=== PATIENT | male | born 1955 | race Caucasian/White ===

== ENCOUNTER 2017-11-08 09:53 | Inpatient (IN) | payer MEDICARE, OTHER ==
[~2017-11-08] VITALS: Ht 167.6 cm; Wt 106.2 kg
[~2017-11-08 09:53] MED LIST: ALBU18HF2 INH; ALBU2.5V13 NEB; ASPI-1053 PO; ATOR80TA PO; ATR0.5NEB NEB; BECL8.7A7 INH; BUSP5TAB3 PO; GLUC1CAP17 PO; ISOS30TA6 PO; LABE100T5 PO; LISI-604 PO; ONDA4TAB12 PO; PANT40TA4 PO; SPIIN INH; SUMA100T16 PO
[2017-11-08] MEDS ORDERED: ipratropium/albuterol 3ml nebule NEB ONE (10:20)
[2017-11-08] MEDS ORDERED: methylPREDNISolone sod succ 125mg/2ml vial IV ONE (10:20)
[2017-11-08 10:26] LABS: BASOPHILS # (AUTO) 0.1 X10'3 (0-0.2); BASOPHILS % (AUTO) 0.8 % (0-1); EOSINOPHILS # (AUTO) 0.2 X10'3 (0-0.9); EOSINOPHILS % (AUTO) 1.9 % (0-6); HEMOGLOBIN 14.6 g/dl (14.0-17.9); LYMPHOCYTES # (AUTO) 1.7 X10'3 (1.1-4.8); LYMPHOCYTES % (AUTO) 19.4 % (21-51); MEAN CORPUSCULAR HGB CONC 34.8 % (33.0-36.5); MEAN CORPUSCULAR VOLUME 89.1 FL (78-98); MEAN PLATELET VOLUME 9.7 FL (7.4-10.4); MONOCYTES # (AUTO) 0.5 X10'3 (0-0.9); MONOCYTES % (AUTO) 5.4 % (2-12); NEUTROPHILS # (AUTO) 6.4 X10'3 (1.8-7.7); NEUTROPHILS % (AUTO) 72.5 % (42-75); PLATELET COUNT 182 X10'3 (140-440); RED BLOOD COUNT 4.71 X10'6 (4.70-6.10); RED CELL DISTRIBUTION WIDTH 14.5 % (11.5-14.5); WHITE BLOOD COUNT 8.8 X10'3 (4.5-11.0)
[2017-11-08] MEDS: magnesium 1gm/100ml D5W IVPB 100 ML IV SCH ×2 (10:37→11:36)
[2017-11-08 10:39] LABS: PARTIAL THROMBOPLASTIN TIME 24 SECONDS (22-32); PROTHROMBIN TIME 10.1 SECONDS (9.0-12.0)
[2017-11-08 10:44] LABS: ALANINE AMINOTRANSFERASE 126 U/L (12-78); ALBUMIN 3.5 G/DL (3.4-5.0); ALBUMIN/GLOBULIN RATIO 1.3 (1.1-1.5); ALKALINE PHOSPHATASE 110 IU/L (46-116); ANION GAP 10 (8-16); ASPARTATE AMINO TRANSFERASE 69 U/L (10-37); BILIRUBIN,TOTAL 0.3 MG/DL (0.1-1.0); BLOOD UREA NITROGEN 20 MG/DL (7-18); BUN/CREATININE RATIO 20.4 (5.4-32.0); CALCIUM 8.9 MG/DL (8.5-10.1); CHLORIDE 104 MMOL/L (99-107); CREATININE 0.98 MG/DL (0.60-1.10); GLUCOSE 194 MG/DL (70-104); POTASSIUM 3.3 MMOL/L (3.5-5.1); SODIUM 142 MMOL/L (135-145); TOTAL CARBON DIOXIDE 27.6 MMOL/L (24-32); TOTAL PROTEIN 6.3 G/DL (6.4-8.2); eGFR 78 ML/MIN
[2017-11-08] MEDS ORDERED: furosemide 10 MG/1 ML 10ml inj IV ONE (11:05)
[2017-11-08] MEDS ORDERED: potassium Cl 20 mEq SR tablet PO STA (12:15)
[2017-11-08] MEDS ORDERED: DISO150C4 (13:05)
[2017-11-08] MEDS ORDERED: acetaminophen 325mg tablet PO PRN (13:15)
[2017-11-08] MEDS ORDERED: magnesium hydroxide 30ml (MOM) UD suspension PO PRN (13:15)
[2017-11-08] MEDS ORDERED: ondansetron/PF 4mg/2ml inj IV PRN (13:15)
[2017-11-08] MEDS ORDERED: mag hydrox/Alum hydrox/simeth 30ml oral suspension PO PRN (13:15)
[2017-11-08] MEDS ORDERED: non-formulary drug (Albuterol Sulfate (Ventolin Hfa) 2 PUFFS) INH PRN (14:25)
[2017-11-08] MEDS ORDERED: albuterol 2.5 MG/3 ML nebule NEB PRN (14:30)
[2017-11-08 15:01] VITALS: BP 122/50
[2017-11-08] MEDS: ipratropium/albuterol 3ml nebule NEB SCH ×3 (15:25→23:37)
[2017-11-08 19:00] VITALS: BP 120/65
[2017-11-08] MEDS ORDERED: potassium Cl 20 mEq SR tablet PO SCH (20:00)
[2017-11-08] MEDS: furosemide 40mg/4ml inj IV SCH (20:40)
[2017-11-08] MEDS: labetalol 100mg tablet PO SCH (20:42)
[2017-11-08] MEDS ORDERED: potassium Cl oral solution 20 MEQ/15 ML PO ONE (22:35)
[2017-11-08 23:00] VITALS: BP 114/50
[2017-11-09 03:00] VITALS: BP 113/44
[2017-11-09] MEDS: ipratropium/albuterol 3ml nebule NEB SCH ×6 (03:31→22:49)
[2017-11-09 06:00] VITALS: BP 128/64
[2017-11-09 07:09] LABS: BASOPHILS % (AUTO) 0 % (0-1); EOSINOPHILS # (AUTO) 0.2 X10'3 (0-0.9); EOSINOPHILS % (AUTO) 1.3 % (0-6); HEMATOCRIT 43.9 % (42.0-52.0); HEMOGLOBIN 14.9 g/dl (14.0-17.9); LYMPHOCYTES % (AUTO) 6.3 % (21-51); MEAN CORPUSCULAR HEMOGLOBIN 30.5 PG (27.0-31.0); MEAN CORPUSCULAR HGB CONC 33.9 % (33.0-36.5); MEAN CORPUSCULAR VOLUME 89.9 FL (78-98); MEAN PLATELET VOLUME 10.2 FL (7.4-10.4); MONOCYTES # (AUTO) 0.6 X10'3 (0-0.9); MONOCYTES % (AUTO) 3.9 % (2-12); NEUTROPHILS # (AUTO) 14.1 X10'3 (1.8-7.7); NEUTROPHILS % (AUTO) 88.5 % (42-75); PLATELET COUNT 206 X10'3 (140-440); RED BLOOD COUNT 4.88 X10'6 (4.70-6.10); RED CELL DISTRIBUTION WIDTH 14.6 % (11.5-14.5); WHITE BLOOD COUNT 15.9 X10'3 (4.5-11.0)
[2017-11-09 07:18] LABS: ALBUMIN 3.4 G/DL (3.4-5.0); ANION GAP 8 (8-16); BLOOD UREA NITROGEN 17 MG/DL (7-18); BUN/CREATININE RATIO 16.5 (5.4-32.0); CALCIUM 9.3 MG/DL (8.5-10.1); CHLORIDE 106 MMOL/L (99-107); CREATININE 1.03 MG/DL (0.60-1.10); GLUCOSE 172 MG/DL (70-104); POTASSIUM 4.1 MMOL/L (3.5-5.1); SODIUM 140 MMOL/L (135-145); TOTAL CARBON DIOXIDE 25.6 MMOL/L (24-32); eGFR 74 ML/MIN
[2017-11-09] MEDS: potassium Cl oral solution 20 MEQ/15 ML PO SCH ×2 (07:42→20:12)
[2017-11-09] MEDS: furosemide 40mg/4ml inj IV SCH (07:42)
[2017-11-09] MEDS: lisinopril 5mg tablet PO SCH (07:42)
[2017-11-09] MEDS: labetalol 100mg tablet PO SCH ×2 (07:42→20:11)
[2017-11-09] MEDS: aspirin 81mg tab.chew PO SCH (07:42)
[2017-11-09] MEDS ORDERED: [UNRECOGNIZED DRUG - OTHER] PO SCH (08:00)
[2017-11-09] MEDS: [UNRECOGNIZED DRUG - REMARK] PO NR (10:27)
[2017-11-09 11:00] VITALS: BP 134/66
[2017-11-09] MEDS ORDERED: diphenhydrAMINE 50 mg/ml inj IV ONE ×2 (12:25→18:00)
[2017-11-09 13:21] LABS: ALANINE AMINOTRANSFERASE 112 U/L (12-78); ALBUMIN 3.9 G/DL (3.4-5.0); ALBUMIN/GLOBULIN RATIO 1.3 (1.1-1.5); ALKALINE PHOSPHATASE 93 IU/L (46-116); ASPARTATE AMINO TRANSFERASE 30 U/L (10-37); BILIRUBIN,DIRECT 0.1 MG/DL (0-0.3); BILIRUBIN,TOTAL 0.5 MG/DL (0.1-1.0)
[2017-11-09 15:00] VITALS: BP 123/63
[2017-11-09 19:00] VITALS: BP 133/56
[2017-11-09] MEDS: famotidine 20mg tablet PO SCH (20:10)
[2017-11-09] MEDS: hydrOXYzine 25 MG tablet PO SCH (20:11)
[2017-11-09 23:00] VITALS: BP 118/63
[2017-11-10] MEDS: ipratropium/albuterol 3ml nebule NEB SCH ×3 (02:38→10:11)
[2017-11-10] MEDS: hydrOXYzine 25 MG tablet PO SCH ×2 (02:48→09:02)
[2017-11-10 03:00] VITALS: BP 141/73
[2017-11-10 06:07] LABS: BASOPHILS % (AUTO) 0.5 % (0-1); EOSINOPHILS # (AUTO) 0.2 X10'3 (0-0.9); EOSINOPHILS % (AUTO) 2.2 % (0-6); HEMATOCRIT 42.4 % (42.0-52.0); HEMOGLOBIN 14.5 g/dl (14.0-17.9); LYMPHOCYTES # (AUTO) 2.2 X10'3 (1.1-4.8); LYMPHOCYTES % (AUTO) 21.7 % (21-51); MEAN CORPUSCULAR HEMOGLOBIN 30.9 PG (27.0-31.0); MEAN CORPUSCULAR HGB CONC 34.2 % (33.0-36.5); MEAN CORPUSCULAR VOLUME 90.4 FL (78-98); MEAN PLATELET VOLUME 9.8 FL (7.4-10.4); MONOCYTES # (AUTO) 0.7 X10'3 (0-0.9); MONOCYTES % (AUTO) 6.9 % (2-12); NEUTROPHILS # (AUTO) 6.8 X10'3 (1.8-7.7); NEUTROPHILS % (AUTO) 68.7 % (42-75); PLATELET COUNT 178 X10'3 (140-440); RED BLOOD COUNT 4.69 X10'6 (4.70-6.10); RED CELL DISTRIBUTION WIDTH 15.1 % (11.5-14.5)
[2017-11-10 06:14] LABS: ALBUMIN 3.2 G/DL (3.4-5.0); ANION GAP 8 (8-16); BLOOD UREA NITROGEN 17 MG/DL (7-18); BUN/CREATININE RATIO 17.5 (5.4-32.0); CHLORIDE 105 MMOL/L (99-107); CREATININE 0.97 MG/DL (0.60-1.10); GLUCOSE 106 MG/DL (70-104); POTASSIUM 3.9 MMOL/L (3.5-5.1); SODIUM 141 MMOL/L (135-145); TOTAL CARBON DIOXIDE 28.3 MMOL/L (24-32); eGFR 79 ML/MIN
[2017-11-10 06:30] VITALS: BP 137/72
[2017-11-10] MEDS: lisinopril 5mg tablet PO SCH (09:01)
[2017-11-10] MEDS: famotidine 20mg tablet PO SCH (09:02)
[2017-11-10] MEDS: labetalol 100mg tablet PO SCH (09:02)
[2017-11-10] MEDS: aspirin 81mg tab.chew PO SCH (09:02)
[2017-11-10] MEDS: potassium Cl oral solution 20 MEQ/15 ML PO SCH (09:03)
[2017-11-10] MEDS: [UNRECOGNIZED DRUG - REMARK] PO NR (10:02)
[2017-11-10] MEDS ORDERED: BUDE10.22 INH (10:49)
[2017-11-10] MEDS ORDERED: FAMO20TA8 PO (10:49)
[2017-11-10 11:00] VITALS: BP 121/76
== END 2017-11-10 12:54 | disposition home or self-care (01) | DRG 292 ==
LOC: ER 09:53 → ED HOLD 13:11 → PCU 3S 14:47
PROVIDERS: ADMIT Family Medicine; ATTEND Family Medicine
PROC: 5A09357 Assistance with Respiratory Ventilation, Less than 24 Consecutive Hours, Continuous Positive Airway Pressure (ICD-10-PCS; principal; 2017-11-08)
PROC: 5A09357 Assistance with Respiratory Ventilation, Less than 24 Consecutive Hours, Continuous Positive Airway Pressure (ICD-10-PCS; 2017-11-09)
PROC: 5A09357 Assistance with Respiratory Ventilation, Less than 24 Consecutive Hours, Continuous Positive Airway Pressure (ICD-10-PCS; 2017-11-10)
DX: I11.0 Hypertensive heart disease with heart failure (principal); J96.10 Chronic respiratory failure, unspecified whether with hypoxia or hypercapnia; I50.33 Acute on chronic diastolic (congestive) heart failure; I42.1 Obstructive hypertrophic cardiomyopathy; J44.9 Chronic obstructive pulmonary disease, unspecified; G47.33 Obstructive sleep apnea (adult) (pediatric); E78.00 Pure hypercholesterolemia, unspecified; R21 Rash and other nonspecific skin eruption; K21.9 Gastro-esophageal reflux disease without esophagitis; Z90.49 Acquired absence of other specified parts of digestive tract; Z95.810 Presence of automatic (implantable) cardiac defibrillator; Z88.8 Allergy status to other drugs, medicaments and biological substances; Z79.899 Other long term (current) drug therapy; Z86.73 Personal history of transient ischemic attack (TIA), and cerebral infarction without residual deficits; Z86.79 Personal history of other diseases of the circulatory system; Z87.891 Personal history of nicotine dependence
CPT/HCPCS: 36415; 71045; 80048; 80053; 80076; 83880; 84145; 84484; 85025; 85610; 85730; 87070; 93005; 93306; 94640; 94760; 96374; 96375; 99285; J1200; J1940; J2930; Q0177

== ENCOUNTER 2018-11-02 19:08 | Inpatient (IN) | payer MEDICARE, OTHER ==
[~2018-11-02] VITALS: Ht 167.6 cm; Wt 106.4 kg
[~2018-11-02 19:08] MED LIST changes: -ATOR80TA PO; -BECL8.7A7 INH; +BUDE10.22 INH; -BUSP5TAB3 PO; +DISO150C4; +FAMO20TA8 PO; -ISOS30TA6 PO; -ONDA4TAB12 PO; -PANT40TA4 PO; -SPIIN INH; -SUMA100T16 PO
[2018-11-02 19:38] LABS: BASOPHILS # (AUTO) 0.1 X10'3 (0-0.2); BASOPHILS % (AUTO) 0.9 % (0-1); EOSINOPHILS # (AUTO) 0.2 X10'3 (0-0.9); EOSINOPHILS % (AUTO) 1.6 % (0-6); HEMATOCRIT 45.5 % (42.0-52.0); HEMOGLOBIN 15.1 g/dl (14.0-17.9); LYMPHOCYTES # (AUTO) 3.5 X10'3 (1.1-4.8); MEAN CORPUSCULAR HEMOGLOBIN 29.8 PG (27.0-31.0); MEAN CORPUSCULAR HGB CONC 33.2 g/dL (33.0-36.5); MEAN CORPUSCULAR VOLUME 89.8 FL (78-98); MEAN PLATELET VOLUME 9.5 FL (7.4-10.4); MONOCYTES # (AUTO) 0.8 X10'3 (0-0.9); MONOCYTES % (AUTO) 6.8 % (2-12); NEUTROPHILS # (AUTO) 7.4 X10'3 (1.8-7.7); NEUTROPHILS % (AUTO) 61.7 % (42-75); PLATELET COUNT 258 X10'3 (140-440); RED BLOOD COUNT 5.06 X10'6 (4.70-6.10); RED CELL DISTRIBUTION WIDTH 14.2 % (11.5-14.5)
[2018-11-02 19:45] LABS: ALANINE AMINOTRANSFERASE 94 U/L (12-78); ALBUMIN 3.8 G/DL (3.4-5.0); ALBUMIN/GLOBULIN RATIO 1.2 (1.1-1.5); ALKALINE PHOSPHATASE 113 IU/L (46-116); ANION GAP 11 (8-16); ASPARTATE AMINO TRANSFERASE 50 U/L (10-37); BILIRUBIN,TOTAL 0.4 MG/DL (0.1-1.0); BLOOD UREA NITROGEN 15 MG/DL (7-18); CALCIUM 9.8 MG/DL (8.5-10.1); CHLORIDE 105 MMOL/L (99-107); CREATININE 1.25 MG/DL (0.60-1.10); GLUCOSE 138 MG/DL (70-104); POTASSIUM 3.7 MMOL/L (3.5-5.1); SODIUM 141 MMOL/L (135-145); TOTAL CARBON DIOXIDE 24.7 MMOL/L (24-32); TOTAL PROTEIN 7.1 G/DL (6.4-8.2); eGFR 59 ML/MIN
[2018-11-02 19:52] LABS: PARTIAL THROMBOPLASTIN TIME 25 SECONDS (22-32)
[2018-11-02] MEDS ORDERED: aspirin 81mg tab.chew PO ONE (20:20)
[2018-11-02] MEDS ORDERED: nitroGLYCERIN 0.4mg SUBLingual tab SL PRN (20:20)
[2018-11-02] MEDS ORDERED: magnesium 4gm in 100ml NS 100 ML IV PRN (20:55)
[2018-11-02] MEDS ORDERED: acetaminophen 325mg tablet PO PRN ×2 (20:55)
[2018-11-02] MEDS ORDERED: magnesium Cl slow-release 64mg tablet PO PRN (20:55)
[2018-11-02] MEDS ORDERED: ondansetron/PF 4mg/2ml inj IV PRN (20:55)
[2018-11-02] MEDS ORDERED: potassium Cl 20 mEq SR tablet PO PRN ×2 (20:55)
[2018-11-02] MEDS ORDERED: magnesium hydroxide 30ml (MOM) UD suspension PO PRN (20:55)
[2018-11-02] MEDS ORDERED: potassium CL 10mEq/100ml bag 100 ML IV PRN ×2 (20:55)
[2018-11-02] MEDS ORDERED: magnesium 2GM in 50ml NS 50 ML IV PRN (20:55)
[2018-11-02] MEDS ORDERED: mag hydrox/Alum hydrox/simeth 30ml oral suspension PO PRN (20:55)
--- NOTE | 2018-11-02 21:45 | NUR ---
Patient in room PCU 3018. I have received report from Graciela CARVAJAL and had the opportunity to ask questions and assume patient care.
[2018-11-02 22:00] VITALS: BP 140/69
--- NOTE | 2018-11-02 22:00 | NUR ---
Patient admitted to 3018B. Able to walk independently in room and to that bathroom. Patient is stable, alert, and oriented; family is at bedside.
[2018-11-02] MEDS ORDERED: PANT-47 PO (23:38)
[2018-11-02] MEDS ORDERED: POTA10TA19 PO (23:38)
[2018-11-02] MEDS ORDERED: DILT180C49 PO (23:38)
[2018-11-02] MEDS ORDERED: FURO-150 PO (23:38)
[2018-11-02] MEDS ORDERED: METF500T PO (23:38)
[2018-11-02] MEDS ORDERED: RANI150T8 PO (23:38)
[2018-11-03 01:14] LABS: BASOPHILS # (AUTO) 0.1 X10'3 (0-0.2); BASOPHILS % (AUTO) 1.1 % (0-1); EOSINOPHILS # (AUTO) 0.1 X10'3 (0-0.9); EOSINOPHILS % (AUTO) 1.2 % (0-6); HEMATOCRIT 41.1 % (42.0-52.0); HEMOGLOBIN 13.7 g/dl (14.0-17.9); LYMPHOCYTES # (AUTO) 1.6 X10'3 (1.1-4.8); LYMPHOCYTES % (AUTO) 20.5 % (21-51); MEAN CORPUSCULAR HEMOGLOBIN 29.9 PG (27.0-31.0); MEAN CORPUSCULAR HGB CONC 33.3 g/dL (33.0-36.5); MEAN CORPUSCULAR VOLUME 89.8 FL (78-98); MONOCYTES # (AUTO) 0.5 X10'3 (0-0.9); MONOCYTES % (AUTO) 6.4 % (2-12); NEUTROPHILS # (AUTO) 5.6 X10'3 (1.8-7.7); NEUTROPHILS % (AUTO) 70.8 % (42-75); PLATELET COUNT 210 X10'3 (140-440); RED BLOOD COUNT 4.58 X10'6 (4.70-6.10); RED CELL DISTRIBUTION WIDTH 14.3 % (11.5-14.5); WHITE BLOOD COUNT 7.9 X10'3 (4.5-11.0)
[2018-11-03] MEDS ORDERED: MESSAGE TO PHARMACY PO ONE (01:15)
[2018-11-03] MEDS ORDERED: glucagon, human recombinant 1mg kit SUBCUT PRN (01:15)
[2018-11-03] MEDS ORDERED: dextrose ORAL solution 15 GM/59 ML bottle PO PRN ×2 (01:15)
[2018-11-03] MEDS ORDERED: dextrose 50%-water 50ml dispensing syringe IV PRN ×2 (01:15)
[2018-11-03] MEDS ORDERED: insulin Lispro (HumaLOG) vial - multi-dose SQ SCH (01:15)
--- NOTE | 2018-11-03 01:22 | NUR ---
PAGER ID: [phone] MESSAGE: [id number] Filipe Youngblood: Patient stated that he had reaction to furosemide in the hospital, but also doesn't really remember the medication name, he continues to take furosemide at home with no allergic reactions. anna CARVAJAL 1000
[2018-11-03 01:28] LABS: ALBUMIN 3.3 G/DL (3.4-5.0); ANION GAP 7 (8-16); BLOOD UREA NITROGEN 15 MG/DL (7-18); BUN/CREATININE RATIO 14.6 (5.4-32.0); CALCIUM 9.5 MG/DL (8.5-10.1); CHLORIDE 109 MMOL/L (99-107); CREATININE 1.03 MG/DL (0.60-1.10); GLUCOSE 124 MG/DL (70-104); MAGNESIUM 1.8 MG/DL (1.5-2.4); POTASSIUM 3.7 MMOL/L (3.5-5.1); SODIUM 142 MMOL/L (135-145); TOTAL CARBON DIOXIDE 26.2 MMOL/L (24-32); eGFR 73 ML/MIN
[2018-11-03 02:00] VITALS: BP 133/72
--- NOTE | 2018-11-03 06:25 | NUR ---
Patient in room PCU 3018. I have received report from Susan CARVAJAL and had the opportunity to ask questions and assume patient care.
--- NOTE | 2018-11-03 06:30 | NUR ---
Problems reprioritized. Patient report given, questions answered & plan of care reviewed with Ivanna CARVAJAL.
[2018-11-03 07:00] VITALS: BP 144/72
[2018-11-03] MEDS ORDERED: furosemide 40mg/4ml inj IV SCH (08:00)
[2018-11-03] MEDS ORDERED: K and/or MAG REPLACEMENT MC SCH (08:00)
[2018-11-03] MEDS ORDERED: enoxaparin 40mg/0.4ml syringe SQ SCH (08:00)
--- NOTE | 2018-11-03 09:11 | NUR ---
PAGER ID: [phone] MESSAGE: [id number], Rylie. Patient inquiring about medications? Patient has a documented allergy to Lasix but takes it at home want to confirm it is ok to give? Ivanna [phone]
[2018-11-03 11:00] VITALS: BP 151/75
[2018-11-03] MEDS ORDERED: diltiazem CD 180mg cap (once-daily) PO SCH (20:00)
[2018-11-03] MEDS ORDERED: famotidine 20mg tablet PO SCH (20:00)
[2018-11-03] MEDS ORDERED: insulin glargine (Lantus) pen - multi-dose SQ SCH (21:00)
[2018-11-04] MEDS ORDERED: aspirin 81mg tab.chew PO SCH (08:00)
[2018-11-04] MEDS ORDERED: pantoprazole 40mg Tablet.DR PO SCH (08:00)
[2018-11-04] MEDS ORDERED: [UNRECOGNIZED DRUG - OTHER] PO SCH (08:00)
== END 2018-11-03 13:50 | disposition home or self-care (01) | DRG 313 ==
LOC: ER 19:10 → PCU 3S 21:58 → CMPBEDREQ 22:24
PROVIDERS: ADMIT Hospitalist; ATTEND Family Medicine
PROC: 5A09357 Assistance with Respiratory Ventilation, Less than 24 Consecutive Hours, Continuous Positive Airway Pressure (ICD-10-PCS; principal; 2018-11-03)
DX: R07.89 Other chest pain (principal); I24.9 Acute ischemic heart disease, unspecified; I42.1 Obstructive hypertrophic cardiomyopathy; J44.9 Chronic obstructive pulmonary disease, unspecified; E11.65 Type 2 diabetes mellitus with hyperglycemia; E78.00 Pure hypercholesterolemia, unspecified; G47.33 Obstructive sleep apnea (adult) (pediatric); I11.0 Hypertensive heart disease with heart failure; I50.9 Heart failure, unspecified; Z79.84 Long term (current) use of oral hypoglycemic drugs; Z86.73 Personal history of transient ischemic attack (TIA), and cerebral infarction without residual deficits; Z90.49 Acquired absence of other specified parts of digestive tract; Z88.8 Allergy status to other drugs, medicaments and biological substances; Z91.040 Latex allergy status; Z79.899 Other long term (current) drug therapy; Z79.82 Long term (current) use of aspirin; Z95.0 Presence of cardiac pacemaker
CPT/HCPCS: 36415; 71045; 80048; 80053; 82948; 83036; 83735; 83880; 84484; 85025; 85610; 85730; 87081; 93005; 99285; G0378; J1650; J1815